=== PATIENT | female | born 1985 | race Caucasian/White ===

== ENCOUNTER → 2016-12-10 | Outpatient (CLI) | payer BC ==
[~2016-12-10] MED LIST: CITA10TA12 PO; FERR325C PO; HYDR-700 PO; NITR-65 PO; OXYC-12 PO; ZOLP10TA PO
== END ==
LOC: CARD 10:01
PROVIDERS: ATTEND Nurse Practitioner Adult Health
DX: R00.2 Palpitations (principal)
CPT/HCPCS: 93225; 93226

== ENCOUNTER → 2017-10-14 | Outpatient (CLI) | payer BC ==
[~2017-10-14] MED LIST changes: +BARIUM SUSPENSION 105% (LIQUID POLIBAR PLUS) 240 ML/DOSE PO ONE; +BARIUM SUSPENSION 60% (LIQUID EZ PAQUE) 240 ML DOSE PO ONE
--- NOTE | 2017-10-14 16:15 | Diagnostic Imaging Report ---
EXAMINATION: Upper GI study, double contrast. Woodworking Machine Setter image of the abdomen was performed. After the oral administration of gas forming granules, the patient drank thick and thin barium with visualization under fluoroscopy, with spot images taken over the esophagus, stomach and duodenum and followed by overhead images in the chest and abdomen. INDICATION: Gastroesophageal reflux. FLUOROSCOPY TIME: 59 seconds. FINDINGS: Woodworking Machine Setter images of the abdomen demonstrate small amount of fecal material. The esophagus demonstrates normal caliber with no strictures. The mucosal pattern demonstrates no filling defects, diverticulum or ulceration. There is normal relaxation of the distal sphincter. There is slight delay in emptying of the esophagus with residual barium seen in the prone position suggestive of mild motility dysfunction. No tertiary or other abnormal contractions seen. There is no hiatal hernia. The stomach demonstrates normal distensibility with normal appearance of the mucosal folds. There are no ulcers or evidence of mass. The duodenal bulb and sweep appear normal. IMPRESSION: Slight incomplete emptying of the esophagus on prone position only compatible with the minimal motility dysfunction. Otherwise unremarkable double-contrast upper GI study. Dictated by: Dictated on workstation # [id number]
== END ==
LOC: RAD 08:44
PROVIDERS: ATTEND Surgery
DX: K21.9 Gastro-esophageal reflux disease without esophagitis (principal)
CPT/HCPCS: 74241

== ENCOUNTER 2017-11-11 11:49 | Outpatient (CLI) | payer BC ==
[~2017-11-11] VITALS: Ht 160 cm; Wt 135.8 kg
[~2017-11-11 11:49] MED LIST changes: -BARIUM SUSPENSION 105% (LIQUID POLIBAR PLUS) 240 ML/DOSE PO ONE; -BARIUM SUSPENSION 60% (LIQUID EZ PAQUE) 240 ML DOSE PO ONE
[2017-11-11] MEDS ORDERED: VORT10TA PO (12:07)
[2017-11-11] MEDS ORDERED: ARIP5TAB12 PO (12:07)
[2017-11-11] MEDS ORDERED: CALC-857 PO (12:08)
[2017-11-11] MEDS ORDERED: MULT-192 PO (12:08)
[2017-11-11 12:14] VITALS: BP 134/81
[2017-11-11 12:31] LABS: BASOPHILS % (AUTO) 0 % (0-10); EOSINOPHILS % (AUTO) 1 % (0-10); LYMPHOCYTES # (AUTO) 1.9 X 10^3 (1.0-4.0); LYMPHOCYTES % (AUTO) 24 % (12-44); MEAN CORPUSCULAR HEMOGLOBIN 31 PG (25-34); MEAN CORPUSCULAR HGB CONC 36 G/DL (32-36); MEAN CORPUSCULAR VOLUME 88 FL (80-99); MEAN PLATELET VOLUME 9.8 FL (7.4-10.4); MONOCYTES # (AUTO) 0.6 X 10^3 (0.0-1.0); MONOCYTES % (AUTO) 7 % (0-12); NEUTROPHILS # (AUTO) 5.4 X 10^3 (1.8-7.8); NEUTROPHILS % (AUTO) 68 % (42-75); PLATELET COUNT 330 10^3/uL (130-400); RED BLOOD COUNT 4.74 10^6/uL (4.35-5.85); RED CELL DISTRIBUTION WIDTH 12.3 % (10.0-14.5)
== END 2017-11-11 12:25 | disposition home or self-care (01) ==
LOC: PREOP 11:49
PROVIDERS: ATTEND Surgery
DX: Z01.812 Encounter for preprocedural laboratory examination (principal); Z11.2 Encounter for screening for other bacterial diseases; E66.01 Morbid (severe) obesity due to excess calories
CPT/HCPCS: 36415; 85025; 87081

== ENCOUNTER 2017-11-18 10:23 | Inpatient (IN) | payer BC ==
[~2017-11-18] VITALS: Ht 160 cm; Wt 135.8 kg
[~2017-11-18 10:23] MED LIST changes: +ARIP5TAB12 PO; +CALC-857 PO; +MULT-192 PO; +VORT10TA PO
[2017-11-18 10:40] VITALS: BP 121/71
[2017-11-18] MEDS ORDERED: FAMOTIDINE 20MG/2ML IV (PEPCID) IV ONE (10:45)
[2017-11-18] MEDS ORDERED: SCOPOLAMINE 1.5 MG (TRANSDERM-SCOP) PATCH TOP ONE (10:45)
[2017-11-18] MEDS ORDERED: ceFAZolin INJECTION 1,000 MG in NS (IVPB) 50 ML IV ONE (10:45)
[2017-11-18] MEDS ORDERED: ONDANSETRON 4 MG/2 ML (SDV) Z0FRAN IV ONE (10:45)
--- OUTSIDE RECORDS SUMMARY | 2017-11-18 11:00 | XMS REPORT ---
Author Author CLAYTON SRINIVASAN [facility] eClinicalWorks Address Unknown Phone Unavailable Care Team Providers Care Appliance Fixer Name Role Phone CLAYTON SRINIVASNA CP Unavailable Allergies, Adverse Reactions, Alerts Substance Reaction Event Type Codeine Sulfate itching Drug Allergy Problems Problem Type Condition Code Onset Dates Condition Status Problem Anxiety F41.9 Active Problem Major depressive disorder with single episode, remission status unspecified F32.9 Active Problem Severe episode of recurrent major depressive disorder, with psychotic features F33.3 Active Assessment Severe episode of recurrent major depressive disorder, with psychotic features F33.3 Active Problem Primary insomnia F51.01 Active Assessment Anxiety F41.9 Active Medications No Known Medications Procedures Procedure Coding System Code Date Psych diagnostic evaluation, new patient CPT-4 67500 Aug 27, 2016 Results No Known Results Summary Purpose eClinicalWorks Submission
--- OUTSIDE RECORDS SUMMARY | 2017-11-18 11:00 | XMS REPORT ---
Author Author MAURISIO LIU Organization [facility] Address [address] [place] [address] Care Team Providers Care Registered Midwife Name Role Phone MARTINEZ LIUNETTE Unavailable PROBLEMS Type Condition ICD9-CM Code [id number] Code Onset Dates Condition Status SNOMED Code Problem Anxiety F41.9 Active 54336742 Problem Major depressive disorder with single episode, remission status unspecified F32.9 Active 80019927 Assessment Anxiety F41.9 Jul, Active 09030736 Problem Primary insomnia F51.01 Active 2295629 Problem Moderate episode of recurrent major depressive disorder F33.1 Active 666710823 ALLERGIES Substance Reaction Event Type Date Status Codeine Sulfate itching Drug Allergy Jul, Active SOCIAL HISTORY No smoking Hx information available PLAN OF CARE VITAL SIGNS Height 63 in 2016-08-24 Weight 294 lbs 2016-08-24 Heart Rate 78 bpm 2016-08-24 Respiratory Rate 20 2016-08-24 BMI 52.07 kg/m2 2016-08-24 Blood pressure systolic 130 mmHg 2016-08-24 Blood pressure diastolic 72 mmHg 2016-08-24 MEDICATIONS Medication Instructions Dosage Frequency Start Date End Date Duration Status Celexa 20 mg Orally Once a day 1 tablet 24h Jul, 30 day(s) Active Remeron 30 MG Orally one hour before bed 1 tablet before bedtime in the evening Jul, 14 days Active RESULTS No Results PROCEDURES Procedure Date Ordered Related Diagnosis Body Site Office Visit, Est Pt., Level 3 Aug 24, 2016 IMMUNIZATIONS No Known Immunizations
--- OUTSIDE RECORDS SUMMARY | 2017-11-18 11:00 | XMS REPORT ---
Author [facility] Address [address] [place] [address] Care Team Providers Care Television Production Assistant Name Role Phone REDDY MAYER Unavailable PROBLEMS Type Condition ICD9-CM Code GBL37-[id number] Code Onset Dates Condition Status SNOMED Code Problem Moderate episode of recurrent major depressive disorder F33.1 Active 847630825 Problem Primary insomnia F51.01 Active 9170220 Problem Major depressive disorder with single episode, remission status unspecified F32.9 Active 36805284 Problem Psychophysiological insomnia F51.04 Active 281328428 Problem Generalized anxiety disorder F41.1 Active 55949689 Problem Panic attack F41.0 Active 603322594 Problem Anxiety F41.9 Active 27213971 Problem Severe episode of recurrent major depressive disorder, without psychotic features F33.2 Active 60379047 Problem Palpitations R00.2 Active 63054973 ALLERGIES Unknown Allergies SOCIAL HISTORY No smoking Hx information available PLAN OF CARE VITAL SIGNS MEDICATIONS Unknown Medications RESULTS No Results PROCEDURES No Known procedures IMMUNIZATIONS No Known Immunizations
--- OUTSIDE RECORDS SUMMARY | 2017-11-18 11:00 | XMS REPORT ---
Author Author ALEXA MAURISIO Organization [facility] Address [address] [place] [address] Care Team Providers Care Plug Sorter Name Role Phone MARTINEZ LIUNETTE Unavailable PROBLEMS Type Condition ICD9-CM Code IEA34-OM Code Onset Dates Condition Status SNOMED Code Problem Moderate episode of recurrent major depressive disorder F33.1 Active 402282877 Problem Primary insomnia F51.01 Active 7367266 Problem Major depressive disorder with single episode, remission status unspecified F32.9 Active 13660402 Problem Psychophysiological insomnia F51.04 Active 462107556 Problem Generalized anxiety disorder F41.1 Active 62190369 Problem Panic attack F41.0 Active 420762949 Problem Anxiety F41.9 Active 84157169 Problem Severe episode of recurrent major depressive disorder, without psychotic features F33.2 Active 89207483 Problem Palpitations R00.2 Active 29888608 ALLERGIES Substance Reaction Event Type Date Status Codeine Sulfate itching Drug Allergy Nov, Active SOCIAL HISTORY No smoking Hx information available PLAN OF CARE Activity Details Follow Up 4 Weeks Reason:anxiety VITAL SIGNS Height 63 in 2016-12-10 Weight 287.2 lbs 2016-12-10 Temperature 98.7 degrees Fahrenheit 2016-12-10 Heart Rate 102 bpm 2016-12-10 Respiratory Rate 22 2016-12-10 BMI 50.87 kg/m2 2016-12-10 Blood pressure systolic 118 mmHg 2016-12-10 Blood pressure diastolic 90 mmHg 2016-12-10 MEDICATIONS Medication Instructions Dosage Frequency Start Date End Date Duration Status Celexa 40 MG Orally Once a day 1 tablet 24h Jul, Active Clonidine HCl 0.1 MG Orally twice a day prn 1 tablet Nov, 30 day(s) Active Aripiprazole 10 mg Orally Once a day 1 tablet 24h Oct, Active Lunesta 2 MG Orally Once a day 1 tablet immediately before bedtime 24h Oct, Active RESULTS No Results PROCEDURES Procedure Date Ordered Related Diagnosis Body Site Office Visit, Est Pt., Level 3 Dec 10, 2016 IMMUNIZATIONS No Known Immunizations
--- OUTSIDE RECORDS SUMMARY | 2017-11-18 11:00 | XMS REPORT ---
Author Author CLAYTON SRINIVASAN [facility] Address [address] [place] [address] Care Team Providers Care Bricklayer Paving Brick Name Role Phone CLAYTON SRINIVASAN Unavailable PROBLEMS Type Condition ICD9-CM Code TFI90-JF Code Onset Dates Condition Status SNOMED Code Problem Moderate episode of recurrent major depressive disorder F33.1 Active 300846491 Problem Major depressive disorder with single episode, remission status unspecified F32.9 Active 62007038 Problem Primary insomnia F51.01 Active 2158829 Problem Psychophysiological insomnia F51.04 Active 719296501 Problem Generalized anxiety disorder F41.1 Active 21148772 Problem Palpitations R00.2 Active 53741387 Problem Anxiety F41.9 Active 84057951 Problem Severe episode of recurrent major depressive disorder, without psychotic features F33.2 Active 29990552 Problem Panic attack F41.0 Active 988335420 ALLERGIES Unknown Allergies SOCIAL HISTORY No smoking Hx information available PLAN OF CARE Activity Details Follow Up 1 Week Reason:Anxiety, depression VITAL SIGNS MEDICATIONS Unknown Medications RESULTS No Results PROCEDURES Procedure Date Ordered Related Diagnosis Body Site Psychotherapy, patient &/family, 30 minutes, established patient Nov 23, 2016 IMMUNIZATIONS No Known Immunizations
--- OUTSIDE RECORDS SUMMARY | 2017-11-18 11:00 | XMS REPORT ---
Author Author REDDY MAYER [facility] Address [address] [place] [address] Care Team Providers Care Genetic Physician Name Role Phone REDDY MAYER Unavailable PROBLEMS Type Condition ICD9-CM Code [id number] Code Onset Dates Condition Status SNOMED Code Problem Moderate episode of recurrent major depressive disorder F33.1 Active 411965947 Problem Primary insomnia F51.01 Active 1572291 Problem Major depressive disorder with single episode, remission status unspecified F32.9 Active 72101709 Problem Psychophysiological insomnia F51.04 Active 808762281 Problem Generalized anxiety disorder F41.1 Active 57749759 Problem Panic attack F41.0 Active 408101525 Problem Anxiety F41.9 Active 44297339 Problem Severe episode of recurrent major depressive disorder, without psychotic features F33.2 Active 77496392 Problem Palpitations R00.2 Active 63896491 ALLERGIES Unknown Allergies SOCIAL HISTORY No smoking Hx information available PLAN OF CARE VITAL SIGNS MEDICATIONS Medication Instructions Dosage Frequency Start Date End Date Duration Status Belsomra 15 MG Orally Once a day 1 tablet at bedtime as needed 24h Nov, 10 days Active RESULTS No Results PROCEDURES No Known procedures IMMUNIZATIONS No Known Immunizations
--- OUTSIDE RECORDS SUMMARY | 2017-11-18 11:00 | XMS REPORT ---
Author Author MAURISIO LIU [facility] eClinicalWorks Address Unknown Phone Unavailable Care Team Providers Care Biology Specialist Name Role Phone MAURISIO LIU CP Unavailable Allergies, Adverse Reactions, Alerts Substance Reaction Event Type Codeine Sulfate itching Drug Allergy Problems Problem Type Condition Code Onset Dates Condition Status Assessment Primary insomnia F51.01 Active Assessment Panic attack F41.0 Active Problem Palpitations R00.2 Active Problem Severe episode of recurrent major depressive disorder, with psychotic features F33.3 Active Problem Panic attack F41.0 Active Problem Primary insomnia F51.01 Active Assessment Palpitations R00.2 Active Problem Anxiety F41.9 Active Problem Major depressive disorder with single episode, remission status unspecified F32.9 Active Medications Medication Code System Code Instructions Start Date End Date Status Dosage Remeron [facility] [address]-18 45 MG Orally one hour before bed Aug 24, 2016 1 tablet before bedtime in the evening Ambien [facility] [address]-56 10 mg Orally Once a day Oct 26, 2016 1 tablet at bedtime as needed Celexa [facility] [address]-55 20 mg Orally Once a day Aug 24, 2016 1 tablet HydrOXYzine HCl [facility] [address]-32 25 MG Orally every 8 hrs Oct 26, 2016 1 tablet as needed Procedures Procedure Coding System Code Date ASSAY OF FREE THYROXINE CPT-4 69692 Oct 26, 2016 ASSAY OF MAGNESIUM CPT-4 77795 Oct 26, 2016 ASSAY THYROID STIM HORMONE CPT-4 74720 Oct 26, 2016 VENIPUNCT, ROUTINE* CPT-4 18220 Oct 26, 2016 Office Visit, Est Pt., Level 4 CPT-4 05865 Oct 26, 2016 Vital Signs Date/Time: Oct 26, 2016 Cardiac Monitoring Heart Rate 92 bpm Weight 286.9 lbs Height 63 in BMI 50.82 Index Blood Pressure Diastolic 81 mmHg Blood Pressure Systolic 149 mmHg Results Name Result Date Reference Range Unit Abnormality Flag ROUTINE VENIPUNCTURE TSH W/ FREE T4 ----TSH 1.530 20161026 0.450-4.500 uIU/mL ----T4,Free(Direct) 1.30 20161026 0.82-1.77 ng/dL MAGNESIUM, SERUM ----Magnesium, Serum 1.8 20161026 1.6-2.3 mg/dL Summary Purpose eClinicalWorks Submission
--- OUTSIDE RECORDS SUMMARY | 2017-11-18 11:01 | XMS REPORT ---
Author Author CLAYTON SRINIVASAN [facility] Address [address] [place] [address] Care Team Providers Care Glass Sander Name Role Phone CLAYTON SRINIVASAN Unavailable PROBLEMS Type Condition ICD9-CM Code HUI15-HO Code Onset Dates Condition Status SNOMED Code Problem Moderate episode of recurrent major depressive disorder F33.1 Active 188413211 Problem Major depressive disorder with single episode, remission status unspecified F32.9 Active 61222741 Problem Primary insomnia F51.01 Active 4943895 Problem Psychophysiological insomnia F51.04 Active 659305330 Problem Generalized anxiety disorder F41.1 Active 78418797 Problem Palpitations R00.2 Active 12526070 Problem Anxiety F41.9 Active 11100912 Problem Severe episode of recurrent major depressive disorder, without psychotic features F33.2 Active 57367751 Problem Panic attack F41.0 Active 124107677 ALLERGIES Substance Reaction Event Type Date Status Codeine Sulfate itching Drug Allergy Oct, Active SOCIAL HISTORY No smoking Hx information available PLAN OF CARE Activity Details Follow Up 1 Week Reason:Anxiety VITAL SIGNS MEDICATIONS Unknown Medications RESULTS No Results PROCEDURES Procedure Date Ordered Related Diagnosis Body Site Psychotherapy, patient &/family, 30 minutes, established patient Nov 19, 2016 IMMUNIZATIONS No Known Immunizations
--- OUTSIDE RECORDS SUMMARY | 2017-11-18 11:01 | XMS REPORT ---
Author Author CLAYTON SRINIVASAN [facility] Address [address] [place] [address] Care Team Providers Care Elevator Service Mechanic Name Role Phone CLAYTON SRINIVASAN Unavailable PROBLEMS Type Condition ICD9-CM Code [id number] Code Onset Dates Condition Status SNOMED Code Problem Moderate episode of recurrent major depressive disorder F33.1 Active 418104941 Problem Major depressive disorder with single episode, remission status unspecified F32.9 Active 12901974 Problem Primary insomnia F51.01 Active 8565194 Problem Psychophysiological insomnia F51.04 Active 773805154 Problem Generalized anxiety disorder F41.1 Active 35243474 Problem Palpitations R00.2 Active 74591591 Problem Anxiety F41.9 Active 42722937 Problem Severe episode of recurrent major depressive disorder, without psychotic features F33.2 Active 14560336 Problem Panic attack F41.0 Active 891072652 ALLERGIES Substance Reaction Event Type Date Status Codeine Sulfate itching Drug Allergy Oct, Active SOCIAL HISTORY No smoking Hx information available PLAN OF CARE Activity Details Follow Up Tomorrow Reason:Anxiety, Depression, Panic attack VITAL SIGNS MEDICATIONS Unknown Medications RESULTS No Results PROCEDURES Procedure Date Ordered Related Diagnosis Body Site Psych diagnostic evaluation, established patient Nov 18, 2016 IMMUNIZATIONS No Known Immunizations
--- OUTSIDE RECORDS SUMMARY | 2017-11-18 11:01 | XMS REPORT ---
Author Author CLAYTON SRINIVASAN [facility] Address [address] [place] [address] Care Team Providers Care Php Mysql Web Developer Name Role Phone CLAYTON SRINIVASAN Unavailable PROBLEMS Type Condition ICD9-CM Code ZJD46-MX Code Onset Dates Condition Status SNOMED Code Problem Major depressive disorder with single episode, remission status unspecified F32.9 Active 10548540 Problem Anxiety F41.9 Active 47745837 Problem Primary insomnia F51.01 Active 7213582 Problem Moderate episode of recurrent major depressive disorder F33.1 Active 444626298 Problem Migraine without aura and with status migrainosus, not intractable G43.001 Active 108829034 Problem Psychophysiological insomnia F51.04 Active 875028695 Problem Palpitations R00.2 Active 63984942 Problem Panic attack F41.0 Active 087642191 Problem Generalized anxiety disorder F41.1 Active 18879684 Problem Severe episode of recurrent major depressive disorder, without psychotic features F33.2 Active 18526267 ALLERGIES No Information SOCIAL HISTORY Never Assessed PLAN OF CARE Activity Details Follow Up 3 Weeks Reason:Depression VITAL SIGNS MEDICATIONS Unknown Medications RESULTS No Results PROCEDURES Procedure Date Ordered Result Body Site Psychotherapy, patient &/family, 30 minutes, established patient April 06, 2017 IMMUNIZATIONS No Known Immunizations MEDICAL (GENERAL) HISTORY Type Description Date Medical History anxiety Medical History panic disorder Medical History Depression Surgical History section 06/2012 Surgical History appendectomy 06/2009 Surgical History carpal tunnel release--both
--- OUTSIDE RECORDS SUMMARY | 2017-11-18 11:01 | XMS REPORT ---
Author Author [facility] JAQUEZ [facility] Address [address] [place] [address] Care Team Providers Care Education Counselor Name Role Phone LOUISE JAQUEZ Unavailable PROBLEMS Type Condition ICD9-CM Code AVG65-FR Code Onset Dates Condition Status SNOMED Code Problem Major depressive disorder with single episode, remission status unspecified F32.9 Active 01758028 Problem Anxiety F41.9 Active 04962158 Problem Primary insomnia F51.01 Active 7203835 Problem Moderate episode of recurrent major depressive disorder F33.1 Active 051971026 Problem Migraine without aura and with status migrainosus, not intractable G43.001 Active 145028737 Problem Psychophysiological insomnia F51.04 Active 815601496 Problem Palpitations R00.2 Active 62376099 Problem Panic attack F41.0 Active 763207007 Problem Generalized anxiety disorder F41.1 Active 29999975 Problem Severe episode of recurrent major depressive disorder, without psychotic features F33.2 Active 29920404 ALLERGIES Substance Reaction Event Type Date Status Codeine Sulfate itching Drug Allergy Dec, Active SOCIAL HISTORY Never Assessed PLAN OF CARE Activity Details Follow Up 1 Year, sooner prn Reason: VITAL SIGNS Height 63 in 2017-01-12 Weight 283 lbs 2017-01-12 Temperature 98.5 degrees Fahrenheit 2017-01-12 Heart Rate 80 bpm 2017-01-12 Respiratory Rate 20 2017-01-12 BMI 50.13 kg/m2 2017-01-12 Blood pressure systolic 120 mmHg 2017-01-12 Blood pressure diastolic 80 mmHg 2017-01-12 MEDICATIONS Medication Instructions Dosage Frequency Start Date End Date Duration Status Belsomra 15 MG Orally Once a day 1 tablet at bedtime as needed 24h Nov, 10 days Active Ambien CR 12.5 MG Orally Once a day 1 tablet at bedtime as needed 24h 13 Dec, 2016 Active Aripiprazole 10 mg Orally Once a day 1 tablet 24h Active Celexa 40 MG Orally Once a day 1 tablet 24h Active RESULTS Name Result Date Reference Range TRICHOMONAS (IN HOUSE) 2017-01-12 TRICHOMONAS negative Control + Lot # [id number] Exp date 12/2017 BACTERIAL VAGINOSIS (IN HOUSE) 2017-01-12 RESULTS negative Control + Lot # [id number] Exp date 07/2017 CULTURE, GENITAL 2017-01-12 Genital Culture, Routine Final report Result 1 PAP TEST W/ HPV REGARDLESS 2017-01-12 DIAGNOSIS: Specimen adequacy: Clinician provided ICD10: Performed by: QC reviewed by: . . Note: HPV, high-risk Negative Negative PDF Report 2017-01-12 PDF Report1 LCLS GC/CHLAM PROBE (STATE) 2017-01-12 CHLAMYDIA GC PROCEDURES Procedure Date Ordered Result Body Site SPECIMEN HANDLING Jan 12, 2017 TRICHOMONAS ASSAY W/OPTIC Jan 12, 2017 VENIPUNCT, ROUTINE* Jan 12, 2017 CULTURE, BACTERIA, OTHER Jan 12, 2017 VILLATORO VAG, DNA, DIR PROBE Jan 12, 2017 No Charge Jan 12, 2017 IMMUNIZATIONS No Known Immunizations MEDICAL (GENERAL) HISTORY Type Description Date Medical History anxiety Medical History panic disorder Medical History Depression Surgical History section 06/2012 Surgical History appendectomy 06/2009 Surgical History carpal tunnel release--both
--- OUTSIDE RECORDS SUMMARY | 2017-11-18 11:01 | XMS REPORT ---
Author Author MAURISIO LIU Organization [facility] Address [address] [place] [address] Care Team Providers Care Supervisor Line Department Name Role Phone MAURISIO LIU Unavailable PROBLEMS Type Condition ICD9-CM Code ILC01-OK Code Onset Dates Condition Status SNOMED Code Problem Moderate episode of recurrent major depressive disorder F33.1 Active 988639930 Problem Major depressive disorder with single episode, remission status unspecified F32.9 Active 37529506 Problem Primary insomnia F51.01 Active 4569117 Problem Psychophysiological insomnia F51.04 Active 828566275 Problem Generalized anxiety disorder F41.1 Active 37189165 Problem Palpitations R00.2 Active 95027649 Problem Anxiety F41.9 Active 33046982 Problem Severe episode of recurrent major depressive disorder, without psychotic features F33.2 Active 17318572 Problem Panic attack F41.0 Active 740560447 ALLERGIES Unknown Allergies SOCIAL HISTORY No smoking Hx information available PLAN OF CARE VITAL SIGNS MEDICATIONS Unknown Medications RESULTS No Results PROCEDURES No Known procedures IMMUNIZATIONS No Known Immunizations
--- OUTSIDE RECORDS SUMMARY | 2017-11-18 11:01 | XMS REPORT ---
Author Author CLAYTON SRINIVASAN [facility] Address [address] [place] [address] Care Team Providers Care Char Filter Tank Tender Head Name Role Phone CLAYTON SRINIVASAN Unavailable PROBLEMS Type Condition ICD9-CM Code ADJ98-MA Code Onset Dates Condition Status SNOMED Code Problem Major depressive disorder with single episode, remission status unspecified F32.9 Active 35196845 Problem Anxiety F41.9 Active 17743677 Problem Primary insomnia F51.01 Active 7098245 Problem Moderate episode of recurrent major depressive disorder F33.1 Active 700842381 Problem Migraine without aura and with status migrainosus, not intractable G43.001 Active 451371825 Problem Psychophysiological insomnia F51.04 Active 635623126 Problem Palpitations R00.2 Active 85508196 Problem Panic attack F41.0 Active 998891454 Problem Generalized anxiety disorder F41.1 Active 30090833 Problem Severe episode of recurrent major depressive disorder, without psychotic features F33.2 Active 73253544 ALLERGIES No Information SOCIAL HISTORY Never Assessed PLAN OF CARE Activity Details Follow Up 2 Weeks Reason:Depression VITAL SIGNS MEDICATIONS Unknown Medications RESULTS No Results PROCEDURES Procedure Date Ordered Result Body Site Psychotherapy, patient &/family, 30 minutes, established patient March 09, 2017 IMMUNIZATIONS No Known Immunizations MEDICAL (GENERAL) HISTORY Type Description Date Medical History anxiety Medical History panic disorder Medical History Depression Surgical History section 06/2012 Surgical History appendectomy 06/2009 Surgical History carpal tunnel release--both
--- OUTSIDE RECORDS SUMMARY | 2017-11-18 11:01 | XMS REPORT ---
Author Author CLAYTON SRINIVASAN [facility] Address [address] [place] [address] Care Team Providers Care Toy Assembler Wood Name Role Phone CLAYTON SRINIVASAN Unavailable PROBLEMS Type Condition ICD9-CM Code [id number] Code Onset Dates Condition Status SNOMED Code Problem Major depressive disorder with single episode, remission status unspecified F32.9 Active 16452981 Problem Anxiety F41.9 Active 94602983 Problem Primary insomnia F51.01 Active 7765541 Problem Moderate episode of recurrent major depressive disorder F33.1 Active 322257406 Problem Migraine without aura and with status migrainosus, not intractable G43.001 Active 646967582 Problem Psychophysiological insomnia F51.04 Active 958378134 Problem Palpitations R00.2 Active 62006233 Problem Panic attack F41.0 Active 011964989 Problem Generalized anxiety disorder F41.1 Active 75506714 Problem Severe episode of recurrent major depressive disorder, without psychotic features F33.2 Active 09744304 ALLERGIES Substance Reaction Event Type Date Status Codeine Sulfate itching Drug Allergy Feb, Active SOCIAL HISTORY Never Assessed PLAN OF CARE Activity Details Follow Up Next available Reason:Depression, anxiety VITAL SIGNS MEDICATIONS Unknown Medications RESULTS No Results PROCEDURES Procedure Date Ordered Result Body Site Psychotherapy, patient &/family, 30 minutes, established patient March 25, 2017 IMMUNIZATIONS No Known Immunizations MEDICAL (GENERAL) HISTORY Type Description Date Medical History anxiety Medical History panic disorder Medical History Depression Surgical History section 06/2012 Surgical History appendectomy 06/2009 Surgical History carpal tunnel release--both
--- OUTSIDE RECORDS SUMMARY | 2017-11-18 11:01 | XMS REPORT ---
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 Active 559765516 Problem Major depressive disorder with single episode, remission status unspecified F32.9 Active 86865973 Problem Primary insomnia F51.01 Active 5345090 Problem Psychophysiological insomnia F51.04 Active 441915388 Problem Generalized anxiety disorder F41.1 Active 50704851 Problem Palpitations R00.2 Active 81916011 Problem Anxiety F41.9 Active 87016856 Problem Severe episode of recurrent major depressive disorder, without psychotic features F33.2 Active 86870735 Problem Panic attack F41.0 Active 998255580 ALLERGIES Substance Reaction Event Type Date Status Codeine Sulfate itching Drug Allergy Oct, Active SOCIAL HISTORY No smoking Hx information available PLAN OF CARE Activity Details Follow Up 2 Weeks Reason:anxiety VITAL SIGNS Height 63 in 2016-11-18 Weight 278.6 lbs 2016-11-18 Temperature 98.4 degrees Fahrenheit 2016-11-18 Heart Rate 128 bpm 2016-11-18 Respiratory Rate 20 2016-11-18 BMI 49.35 kg/m2 2016-11-18 Blood pressure systolic 132 mmHg 2016-11-18 Blood pressure diastolic 70 mmHg 2016-11-18 MEDICATIONS Medication Instructions Dosage Frequency Start Date End Date Duration Status Celexa 20 mg Orally Once a day 1 tablet 24h Jul, 30 day(s) Active Ambien 10 mg Orally Once a day 1 tablet at bedtime as needed 24h Sep, Active Lorazepam 0.5 MG Orally 3 times a day 1 tablet as needed 8h Oct, Active PredniSONE 20 mg Orally Once a day 2 tablets 24h Oct, Oct, 05 days Active Zofran 8 MG Orally 3 times a day 1 tablet 8h 18 Oct, 2016 Active RESULTS No Results PROCEDURES Procedure Date Ordered Related Diagnosis Body Site Office Visit, Est Pt., Level 4 Nov 18, 2016 IMMUNIZATIONS No Known Immunizations
--- OUTSIDE RECORDS SUMMARY | 2017-11-18 11:01 | XMS REPORT ---
Author Author CLAYTON SRINIVASAN [facility] Address [address] [place] [address] Care Team Providers Care Certified Orthotist Name Role Phone CLAYTON SRINIVASAN Unavailable PROBLEMS Type Condition ICD9-CM Code [id number] Code Onset Dates Condition Status SNOMED Code Problem Moderate episode of recurrent major depressive disorder F33.1 Active 394804011 Problem Primary insomnia F51.01 Active 5920837 Problem Major depressive disorder with single episode, remission status unspecified F32.9 Active 76574566 Problem Psychophysiological insomnia F51.04 Active 883493423 Problem Generalized anxiety disorder F41.1 Active 59156730 Problem Panic attack F41.0 Active 244301582 Problem Anxiety F41.9 Active 50519756 Problem Severe episode of recurrent major depressive disorder, without psychotic features F33.2 Active 61654071 Problem Palpitations R00.2 Active 82537805 ALLERGIES Substance Reaction Event Type Date Status Codeine Sulfate itching Drug Allergy Nov, Active SOCIAL HISTORY No smoking Hx information available PLAN OF CARE Activity Details Follow Up 2 Weeks Reason:Anxiety, depression, weight loss VITAL SIGNS MEDICATIONS Unknown Medications RESULTS No Results PROCEDURES Procedure Date Ordered Related Diagnosis Body Site Psychotherapy, patient &/family, 30 minutes, established patient Dec 16, 2016 IMMUNIZATIONS No Known Immunizations
--- OUTSIDE RECORDS SUMMARY | 2017-11-18 11:01 | XMS REPORT ---
Author Author MAURISIO LIU Organization [facility] Address [address] [place] [address] Care Team Providers Care Internal Control Specialist Name Role Phone MAURISIO LIU Unavailable PROBLEMS Type Condition ICD9-CM Code [id number] Code Onset Dates Condition Status SNOMED Code Problem Moderate episode of recurrent major depressive disorder F33.1 Active 776118796 Problem Primary insomnia F51.01 Active 3983478 Problem Major depressive disorder with single episode, remission status unspecified F32.9 Active 17097231 Problem Psychophysiological insomnia F51.04 Active 541085303 Problem Generalized anxiety disorder F41.1 Active 34019459 Problem Panic attack F41.0 Active 343295576 Problem Anxiety F41.9 Active 37157477 Problem Severe episode of recurrent major depressive disorder, without psychotic features F33.2 Active 44495271 Problem Palpitations R00.2 Active 56374613 ALLERGIES Unknown Allergies SOCIAL HISTORY No smoking Hx information available PLAN OF CARE VITAL SIGNS MEDICATIONS Unknown Medications RESULTS No Results PROCEDURES No Known procedures IMMUNIZATIONS No Known Immunizations
--- OUTSIDE RECORDS SUMMARY | 2017-11-18 11:01 | XMS REPORT ---
Author Author JAYESH BUI [facility] Address [address] [place] [address] Care Team Providers Care Postbed Stitcher Name Role Phone HAO JAYESH Unavailable PROBLEMS Type Condition ICD9-CM Code [id number] Code Onset Dates Condition Status SNOMED Code Problem Major depressive disorder with single episode, remission status unspecified F32.9 Active 65779631 Problem Anxiety F41.9 Active 95920211 Problem Primary insomnia F51.01 Active 7692114 Problem Moderate episode of recurrent major depressive disorder F33.1 Active 669239841 Problem Migraine without aura and with status migrainosus, not intractable G43.001 Active 220800493 Problem Psychophysiological insomnia F51.04 Active 452395285 Problem Palpitations R00.2 Active 72338662 Problem Panic attack F41.0 Active 374486856 Problem Generalized anxiety disorder F41.1 Active 67485843 Problem Severe episode of recurrent major depressive disorder, without psychotic features F33.2 Active 90706832 ALLERGIES Substance Reaction Event Type Date Status Codeine Sulfate itching Drug Allergy Oct, Active SOCIAL HISTORY Never Assessed PLAN OF CARE VITAL SIGNS Height 63 in 2016-11-15 Weight 282.8 lbs 2016-11-15 Temperature 97.9 degrees Fahrenheit 2016-11-15 Heart Rate 84 bpm 2016-11-15 Respiratory Rate 20 2016-11-15 BMI 50.09 kg/m2 2016-11-15 Blood pressure systolic 124 mmHg 2016-11-15 Blood pressure diastolic 82 mmHg 2016-11-15 MEDICATIONS Medication Instructions Dosage Frequency Start Date End Date Duration Status Ambien 10 mg Orally Once a day 1 tablet at bedtime as needed 24h Sep, Active Celexa 20 mg Orally Once a day 1 tablet 24h Jul, 30 day(s) Active PredniSONE 20 mg Orally Once a day 2 tablets 24h Oct, Oct, 05 days Active Zofran 8 MG Orally 3 times a day 1 tablet 8h Oct, Active RESULTS No Results PROCEDURES No Known procedures IMMUNIZATIONS No Known Immunizations MEDICAL (GENERAL) HISTORY Type Description Date Medical History anxiety Medical History panic disorder Medical History Depression Surgical History section 06/2012 Surgical History appendectomy 06/2009 Surgical History carpal tunnel release--both
--- OUTSIDE RECORDS SUMMARY | 2017-11-18 11:01 | XMS REPORT ---
Author Author REDDY MAYER Organization [facility] Address [address] [place] [address] Care Team Providers Care Buggy Man Name Role Phone MORENO, REDDY Unavailable PROBLEMS Type Condition ICD9-CM Code [id number] Code Onset Dates Condition Status SNOMED Code Problem Moderate episode of recurrent major depressive disorder F33.1 Active 471172993 Problem Major depressive disorder with single episode, remission status unspecified F32.9 Active 27487470 Problem Primary insomnia F51.01 Active 9537066 Problem Psychophysiological insomnia F51.04 Active 196117982 Problem Generalized anxiety disorder F41.1 Active 62677502 Problem Palpitations R00.2 Active 13023287 Problem Anxiety F41.9 Active 12714287 Problem Severe episode of recurrent major depressive disorder, without psychotic features F33.2 Active 06156694 Problem Panic attack F41.0 Active 791842108 ALLERGIES Substance Reaction Event Type Date Status Codeine Sulfate itching Drug Allergy Oct, Active SOCIAL HISTORY No smoking Hx information available PLAN OF CARE Activity Details Follow Up 2 Weeks Reason: VITAL SIGNS Height 63 in 2016-11-24 Weight 282 lbs 2016-11-24 BMI 49.95 kg/m2 2016-11-24 Blood pressure systolic 122 mmHg 2016-11-24 Blood pressure diastolic 72 mmHg 2016-11-24 MEDICATIONS Medication Instructions Dosage Frequency Start Date End Date Duration Status Lunesta 2 MG Orally Once a day 1 tablet immediately before bedtime 24h Oct, Active Celexa 40 MG Orally Once a day 1 tablet 24h Jul, Active Aripiprazole 10 mg Orally Once a day 1 tablet 24h Oct, Active RESULTS No Results PROCEDURES Procedure Date Ordered Related Diagnosis Body Site MH Office Visit, Est Pt., Level 2 Nov 24, 2016 IMMUNIZATIONS No Known Immunizations
--- OUTSIDE RECORDS SUMMARY | 2017-11-18 11:01 | XMS REPORT ---
Author Author CLAYTON SRINIVASAN [facility] Address [address] [place] [address] Care Team Providers Care Veneer Taper Name Role Phone CLAYTON SRINIVASAN Unavailable PROBLEMS Type Condition ICD9-CM Code [id number] Code Onset Dates Condition Status SNOMED Code Assessment Severe episode of recurrent major depressive disorder, without psychotic features F33.2 Jul, Active 63271557 Problem Severe episode of recurrent major depressive disorder, with psychotic features F33.3 Active 28226565 Problem Anxiety F41.9 Active 69447428 Problem Moderate episode of recurrent major depressive disorder F33.1 Active 099459591 Assessment Panic attacks F41.0 Jul, Active 923105724 Problem Major depressive disorder with single episode, remission status unspecified F32.9 Active 57114209 Problem Primary insomnia F51.01 Active 7888774 ALLERGIES Unknown Allergies SOCIAL HISTORY No smoking Hx information available PLAN OF CARE VITAL SIGNS MEDICATIONS Unknown Medications RESULTS No Results PROCEDURES Procedure Date Ordered Related Diagnosis Body Site Psych diagnostic evaluation, new patient Aug 24, 2016 IMMUNIZATIONS No Known Immunizations
--- OUTSIDE RECORDS SUMMARY | 2017-11-18 11:01 | XMS REPORT ---
Author Author REDDY MAYER Organization [facility] Address [address] [place] [address] Care Team Providers Care Diesel Mechanic Farm Name Role Phone BERNARD MAYERMIRI Unavailable PROBLEMS Type Condition ICD9-CM Code [id number] Code Onset Dates Condition Status SNOMED Code Problem Moderate episode of recurrent major depressive disorder F33.1 Active 012519679 Problem Primary insomnia F51.01 Active 5358814 Problem Major depressive disorder with single episode, remission status unspecified F32.9 Active 89139644 Problem Psychophysiological insomnia F51.04 Active 228095642 Problem Generalized anxiety disorder F41.1 Active 41999107 Problem Panic attack F41.0 Active 863312895 Problem Anxiety F41.9 Active 42104819 Problem Severe episode of recurrent major depressive disorder, without psychotic features F33.2 Active 16865064 Problem Palpitations R00.2 Active 16132589 ALLERGIES Substance Reaction Event Type Date Status Codeine Sulfate itching Drug Allergy Nov, Active SOCIAL HISTORY No smoking Hx information available PLAN OF CARE Activity Details Follow Up 4 Weeks Reason: VITAL SIGNS Height 63 in 2016-12-22 Weight 281.3 lbs 2016-12-22 Heart Rate 76 bpm 2016-12-22 Respiratory Rate 20 2016-12-22 BMI 49.82 kg/m2 2016-12-22 Blood pressure systolic 120 mmHg 2016-12-22 Blood pressure diastolic 80 mmHg 2016-12-22 MEDICATIONS Medication Instructions Dosage Frequency Start Date End Date Duration Status Zofran 8 MG Orally 3 times a day 1 tablet 8h Oct, Active Aripiprazole 10 mg Orally Once a day 1 tablet 24h Active Belsomra 10 mg Orally Once a day 1 tablet at bedtime as needed 24h Nov, Active Celexa 40 MG Orally Once a day 1 tablet 24h Active Clonidine HCl 0.1 MG Orally twice a day prn 1 tablet Nov, 30 day(s) Active RESULTS No Results PROCEDURES Procedure Date Ordered Related Diagnosis Body Site MH Office Visit, Est Pt., Level 2 Dec 22, 2016 IMMUNIZATIONS No Known Immunizations
--- OUTSIDE RECORDS SUMMARY | 2017-11-18 11:01 | XMS REPORT ---
Author Author MAURISIO LIU Organization [employer] Address Unknown Phone Unavailable Care Team Providers Care Art Therapist Name Role Phone MAURISIO LIU Unavailable Allergies No Known Allergies Problems Problem Type Condition Code Onset Dates Condition Status Problem Anxiety F41.9 Active Problem Major depressive disorder with single episode, remission status unspecified F32.9 Active Problem Severe episode of recurrent major depressive disorder, with psychotic features F33.3 Active Problem Primary insomnia F51.01 Active Medications Medication Code System Code Instructions Start Date End Date Status Dosage Remeron [facility] [address]-06 45 MG Orally one hour before bed Aug 24, 2016 1 tablet before bedtime in the evening Results No Known Results Summary Purpose [employer] Submission
--- OUTSIDE RECORDS SUMMARY | 2017-11-18 11:02 | XMS REPORT ---
Author Author [facility] MAY[facility] Address [address] [place] [address] Care Team Providers Care Zipper Repairer Name Role Phone REDDY MAYER Unavailable PROBLEMS Type Condition ICD9-CM Code LDY32-[id number] Code Onset Dates Condition Status SNOMED Code Problem Moderate episode of recurrent major depressive disorder F33.1 Active 037618399 Problem Primary insomnia F51.01 Active 9969398 Problem Major depressive disorder with single episode, remission status unspecified F32.9 Active 05966780 Problem Psychophysiological insomnia F51.04 Active 927434034 Problem Generalized anxiety disorder F41.1 Active 62058289 Problem Panic attack F41.0 Active 473673390 Problem Anxiety F41.9 Active 32115052 Problem Severe episode of recurrent major depressive disorder, without psychotic features F33.2 Active 88353017 Problem Palpitations R00.2 Active 05288844 ALLERGIES Unknown Allergies SOCIAL HISTORY No smoking Hx information available PLAN OF CARE VITAL SIGNS MEDICATIONS Unknown Medications RESULTS No Results PROCEDURES No Known procedures IMMUNIZATIONS No Known Immunizations
--- OUTSIDE RECORDS SUMMARY | 2017-11-18 11:02 | XMS REPORT ---
Author Author REDDY MAYER [facility] Address [address] [place] [address] Care Team Providers Care Amusement Park Ride Mechanic Name Role Phone REDDY MAYER Unavailable PROBLEMS Type Condition ICD9-CM Code TBH88-PC Code Onset Dates Condition Status SNOMED Code Problem Moderate episode of recurrent major depressive disorder F33.1 Active 345054505 Problem Primary insomnia F51.01 Active 3794664 Problem Major depressive disorder with single episode, remission status unspecified F32.9 Active 40327359 Problem Psychophysiological insomnia F51.04 Active 662119250 Problem Generalized anxiety disorder F41.1 Active 21982064 Problem Panic attack F41.0 Active 018011266 Problem Anxiety F41.9 Active 31111803 Problem Severe episode of recurrent major depressive disorder, without psychotic features F33.2 Active 80933766 Problem Palpitations R00.2 Active 62872108 ALLERGIES Unknown Allergies SOCIAL HISTORY No smoking Hx information available PLAN OF CARE VITAL SIGNS MEDICATIONS Unknown Medications RESULTS No Results PROCEDURES No Known procedures IMMUNIZATIONS No Known Immunizations
--- OUTSIDE RECORDS SUMMARY | 2017-11-18 11:02 | XMS REPORT ---
Author Author MAURISIO LIU Organization [facility] Address [address] [place] [address] Care Team Providers Care Manager Order Name Role Phone LIU, MAURISIO Unavailable PROBLEMS Type Condition ICD9-CM Code FMB28-MO Code Onset Dates Condition Status SNOMED Code Problem Major depressive disorder with single episode, remission status unspecified F32.9 Active 81804147 Problem Anxiety F41.9 Active 85928613 Problem Primary insomnia F51.01 Active 5242858 Problem Moderate episode of recurrent major depressive disorder F33.1 Active 521374549 Problem Migraine without aura and with status migrainosus, not intractable G43.001 Active 748703903 Problem Psychophysiological insomnia F51.04 Active 910905183 Problem Palpitations R00.2 Active 67800968 Problem Panic attack F41.0 Active 412171397 Problem Generalized anxiety disorder F41.1 Active 09982583 Problem Severe episode of recurrent major depressive disorder, without psychotic features F33.2 Active 39425430 ALLERGIES Substance Reaction Event Type Date Status Codeine Sulfate itching Drug Allergy Dec, Active SOCIAL HISTORY Never Assessed PLAN OF CARE Activity Details Follow Up 4 Weeks Reason:anxiety VITAL SIGNS Height 63 in 2017-01-11 Weight 280.5 lbs 2017-01-11 Temperature 98.3 degrees Fahrenheit 2017-01-11 Heart Rate 76 bpm 2017-01-11 Respiratory Rate 20 2017-01-11 BMI 49.68 kg/m2 2017-01-11 Blood pressure systolic 124 mmHg 2017-01-11 Blood pressure diastolic 78 mmHg 2017-01-11 MEDICATIONS Medication Instructions Dosage Frequency Start Date End Date Duration Status Belsomra 15 MG Orally Once a day 1 tablet at bedtime as needed 24h Nov, 10 days Active Celexa 40 MG Orally Once a day 1 tablet 24h Active Aripiprazole 10 mg Orally Once a day 1 tablet 24h Active Ambien CR 12.5 MG Orally Once a day 1 tablet at bedtime as needed 24h Dec, Active RESULTS No Results PROCEDURES No Known procedures IMMUNIZATIONS No Known Immunizations MEDICAL (GENERAL) HISTORY Type Description Date Medical History anxiety Medical History panic disorder Medical History Depression Surgical History section 06/2012 Surgical History appendectomy 06/2009 Surgical History carpal tunnel release--both
--- OUTSIDE RECORDS SUMMARY | 2017-11-18 11:02 | XMS REPORT ---
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 Active 253368603 Problem Migraine without aura and with status migrainosus, not intractable G43.001 Active 885016839 Problem Psychophysiological insomnia F51.04 Active 202079073 Problem Palpitations R00.2 Active 52360930 Problem Panic attack F41.0 Active 250733580 Problem Generalized anxiety disorder F41.1 Active 66600003 Problem Severe episode of recurrent major depressive disorder, without psychotic features F33.2 Active 41403294 ALLERGIES No Information SOCIAL HISTORY Never Assessed PLAN OF CARE Activity Details Follow Up 4 Weeks Reason: VITAL SIGNS MEDICATIONS Medication Instructions Dosage Frequency Start Date End Date Duration Status Ambien CR 12.5 MG Orally Once a day 1 tablet at bedtime as needed 24h Dec, 30 days Active Celexa 40 mg Orally Once a day 1 tablet 24h 30 days Active Aripiprazole 5 MG Orally Once a day 1 tablet 24h 30 days Active RESULTS No Results PROCEDURES No Known procedures IMMUNIZATIONS No Known Immunizations MEDICAL (GENERAL) HISTORY Type Description Date Medical History anxiety Medical History panic disorder Medical History Depression Surgical History section 06/2012 Surgical History appendectomy 06/2009 Surgical History carpal tunnel release--both
--- OUTSIDE RECORDS SUMMARY | 2017-11-18 11:02 | XMS REPORT | Continuity of Care Document ---
Author Author [facility] Organization [facility] Address Unknown Phone Unavailable Allergies Active Description Code Type Severity Reaction Onset Reported/Identified Relationship to Patient Clinical Status Yes NKANo Known Allergies NKA Miscellaneous Allergy Unknown N/A 05/03/2006 Yes codeine [id number] Drug Allergy Unknown RASH, ITCHING 10/14/2017 Medications There is no data. Problems Date Dx Coded Attending Type Code Diagnosis Diagnosed By 07/08/2012 Ot 652.51 HIGH HEAD AT TERM-DELIV 07/08/2012 Ot 653.41 FETOPELV DISPROPOR-DELIV 07/08/2012 Ot 656.61 EXCESS GRTH-DELIV 07/08/2012 Ot 660.11 BONY PELV OBSTRUCT-DELIV 07/08/2012 Ot V23.49 PREG W POOR OBSTECTRIC HISTORY 07/08/2012 Ot V27.0 DELIVER- SINGLE LIVEBORN 10/12/2015 Ot 656.63 10/12/2015 Ot V72.63 10/12/2015 Ot V74.8 10/12/2015 Ot 656.63 10/12/2015 Ot V72.63 10/12/2015 Ot V74.8 10/31/2015 NEPTALI FALLON MD Ot F32.9 10/31/2015 NEPTALI FALLON MD Ot F41.0 10/31/2015 NEPTALI FALLON MD Ot G47.00 05/07/2016 Ot 656.63 EXCESS FET GRTH-ANTEPART 05/07/2016 Ot V72.63 PRE- PROCEDURAL LABORATORY EXAMINATION 05/07/2016 Ot V74.8 SCREEN- BACTERIAL DIS NEC 05/07/2016 NEPTALI FALLON MD Ot F32.9 MAJOR DEPRESSIVE DISORDER, SINGLE EPISOD 05/07/2016 NEPTALI FALLON MD Ot F41.0 PANIC DISORDER WITHOUT AGORAPHOBIA 05/07/2016 NEPTALI FALLON MD Ot G47.00 INSOMNIA, UNSPECIFIED 05/26/2016 Ot 656.63 EXCESS FET GRTH-ANTEPART 05/26/2016 Ot V72.63 PRE- PROCEDURAL LABORATORY EXAMINATION 05/26/2016 Ot V74.8 SCREEN- BACTERIAL DIS NEC 05/26/2016 LEEANNE FRIED, NEPTALI Salguero Ot F32.9 MAJOR DEPRESSIVE DISORDER, SINGLE EPISOD 05/26/2016 LEEANNE FRIED, NEPTALI G Ot F41.0 PANIC DISORDER WITHOUT AGORAPHOBIA 05/26/2016 LEEANNE FRIED NPETALI Salguero Ot G47.00 INSOMNIA, UNSPECIFIED 05/28/2016 Ot 656.63 EXCESS FET GRTH-ANTEPART 05/28/2016 Ot V72.63 PRE- PROCEDURAL LABORATORY EXAMINATION 05/28/2016 Ot V74.8 SCREEN- BACTERIAL DIS NEC 05/28/2016 NEPTALI FALLON MD Ot F32.9 MAJOR DEPRESSIVE DISORDER, SINGLE EPISOD 05/28/2016 LEEANNE FRIED, NEPTALI G Ot F41.0 PANIC DISORDER WITHOUT AGORAPHOBIA 05/28/2016 LEEANNE FRIEDNASIRNEPTALI G Ot G47.00 INSOMNIA, UNSPECIFIED 11/04/2016 Ot 656.63 EXCESS FET GRTH-ANTEPART 11/04/2016 Ot V72.63 PRE- PROCEDURAL LABORATORY EXAMINATION 11/04/2016 Ot V74.8 SCREEN- BACTERIAL DIS NEC 11/04/2016 NEPTALI FALLON MD Ot F32.9 MAJOR DEPRESSIVE DISORDER, SINGLE EPISOD 11/04/2016 LEEANNE FRIEDNASIRNEPTALI G Ot F41.0 PANIC DISORDER WITHOUT AGORAPHOBIA 11/04/2016 NEPTALI FALLON MD Ot G47.00 INSOMNIA, UNSPECIFIED 11/04/2016 CHELO FRIED, DONTE Guardado Ot F41.9 ANXIETY DISORDER, UNSPECIFIED 11/04/2016 CHELO FRIED, DONTE Guardado Ot G47.00 INSOMNIA, UNSPECIFIED 11/04/2016 CHELO FRIED, DONTE Guardado Ot N39.0 URINARY TRACT INFECTION, SITE NOT SPECIF 11/04/2016 CHELO FRIED, DONTE Guardado Ot R19.7 DIARRHEA, UNSPECIFIED 11/10/2016 CHELO FRIED, DONTE Guardado Ot F41.9 ANXIETY DISORDER, UNSPECIFIED 11/10/2016 CHELO FRIED, DONTE Guardado Ot G47.00 INSOMNIA, UNSPECIFIED 11/10/2016 CHELO FRIED, DONTE Guardado Ot N39.0 URINARY TRACT INFECTION, SITE NOT SPECIF 11/10/2016 CHELO FRIED, DONTE Geo Ot R19.7 DIARRHEA, UNSPECIFIED 12/11/2016 MAURISIO LIU CONTINUOUS MINING MACHINE LODE MINER Ot R00.2 PALPITATIONS 12/23/2016 MAURISIO LIU CONTINUOUS MINING MACHINE LODE MINER Ot R00.2 PALPITATIONS 02/25/2017 Ot 656.63 EXCESS FET GRTH-ANTEPART 02/25/2017 Ot V72.63 PRE- PROCEDURAL LABORATORY EXAMINATION 02/25/2017 Ot V74.8 SCREEN- BACTERIAL DIS NEC 02/25/2017 LEEANNE FRIED, NEPTALI Salguero Ot F32.9 MAJOR DEPRESSIVE DISORDER, SINGLE EPISOD 02/25/2017 LEEANNE FRIED, NEPTALI Salguero Ot F41.0 PANIC DISORDER WITHOUT AGORAPHOBIA 02/25/2017 LEEANNE FRIED, NEPTALI Salguero Ot G47.00 INSOMNIA, UNSPECIFIED 10/28/2017 MIGUEL LOGAN MD Ot K21.9 GASTRO-ESOPHAGEAL REFLUX DISEASE WITHOUT 11/12/2017 MIGUEL LOGAN MD Ot E66.01 MORBID (SEVERE) OBESITY DUE TO EXCESS CA 11/12/2017 MIGUEL LOGAN MD Ot Z01.812 ENCOUNTER FOR PREPROCEDURAL LABORATORY E 11/12/2017 MIGUEL LOGAN MD Ot Z11.2 ENCOUNTER FOR SCREENING FOR OTHER BACTER Procedures Code Description Performed By Performed On 73.4 MEDICAL INDUCTION LABOR 02/03/2010 73.59 MANUAL ASSIST DELIV NEC 02/03/2010 74.1 LOW CERVICAL 07/05/2012 Results Test Result Range Complete urinalysis with reflex to culture - 11/04/16 12:48 Urine color determination YELLOW NRG Urine clarity determination CLEAR NRG Urine pH measurement by test strip 5 5-9 Specific gravity of urine by test strip 1.025 1.016- 1.022 Urine protein assay by test strip, semi-quantitative 2+ NEGATIVE Urine glucose detection by automated test strip NEGATIVE NEGATIVE Erythrocytes detection in urine sediment by light microscopy 1+ NEGATIVE Urine ketones detection by automated test strip 2+ NEGATIVE Urine nitrite detection by test strip NEGATIVE NEGATIVE Urine total bilirubin detection by test strip NEGATIVE NEGATIVE Urine urobilinogen measurement by automated test strip (mass/volume) NORMAL NORMAL Urine leukocyte esterase detection by dipstick 3+ NEGATIVE Automated urine sediment erythrocyte count by microscopy (number/high power field) RARE NRG Automated urine sediment leukocyte count by microscopy (number/high power field ) [HPF] NRG Bacteria detection in urine sediment by light microscopy TRACE NRG Squamous epithelial cells detection in urine sediment by light microscopy 2-5 NRG Crystals detection in urine sediment by light microscopy NONE NRG Casts detection in urine sediment by light microscopy NONE NRG Mucus detection in urine sediment by light microscopy SMALL NRG Complete urinalysis with reflex to culture YES NRG Urine drug screening test - 11/04/16 12:48 Urine phencyclidine detection by screening method NEGATIVE NEGATIVE Urine benzodiazepines detection by screening method POSITIVE NEGATIVE Urine cocaine detection NEGATIVE NEGATIVE Urine amphetamines detection by screening method NEGATIVE NEGATIVE Urine methamphetamine detection by screening method NEGATIVE NEGATIVE Urine cannabinoids detection by screening method NEGATIVE NEGATIVE Urine opiates detection by screening method NEGATIVE NEGATIVE Urine barbiturates detection NEGATIVE NEGATIVE Screening urine tricyclic antidepressants detection NEGATIVE NEGATIVE Urine methadone detection by screening method NEGATIVE NEGATIVE Urine oxycodone detection NEGATIVE NEGATIVE Urine propoxyphene detection NEGATIVE NEGATIVE Bacterial urine culture - 11/04/16 12:48 URINE CULTURE RESULTS <10,000/ML NRG Complete blood count (CBC) with automated white blood cell (WBC) differential - 11/04/16 13:08 Blood leukocytes automated count (number/volume) 9.2 10*3/uL 4.3-11.0 Blood erythrocytes automated count (number/volume) 5.03 10*6/uL 4.35-5.85 Venous blood hemoglobin measurement (mass/volume) 14.6 g/dL 11.5-16.0 Blood hematocrit (volume fraction) 42 % 35-52 Automated erythrocyte mean corpuscular volume 84 [foz_us] 80-99 Automated erythrocyte mean corpuscular hemoglobin (mass per erythrocyte) 29 pg 25-34 Automated erythrocyte mean corpuscular hemoglobin concentration measurement ( mass/volume) 34 g/dL 32-36 Automated erythrocyte distribution width ratio 14.2 % 10.0-14.5 Automated blood platelet count (count/volume) 300 10*3/uL 130-400 Automated blood platelet mean volume measurement 10.6 [foz_us] 7.4-10.4 Automated blood neutrophils/100 leukocytes 72 % 42-75 Automated blood lymphocytes/100 leukocytes 19 % 12-44 Blood monocytes/100 leukocytes 9 % 0-12 Automated blood eosinophils/100 leukocytes 0 % 0-10 Automated blood basophils/100 leukocytes 0 % 0-10 Blood neutrophils automated count (number/volume) 6.6 10*3 1.8-7.8 Blood lymphocytes automated count (number/volume) 1.7 10*3 1.0-4.0 Blood monocytes automated count (number/volume) 0.8 10*3 0.0-1.0 Automated eosinophil count 0.0 10*3/uL 0.0-0.3 Automated blood basophil count (count/volume) 0.0 10*3/uL 0.0-0.1 Serum or plasma choriogonadotropin ( test) detection - 11/04/16 13:08 Serum or plasma choriogonadotropin ( test) detection NEGATIVE NEGATIVE Comprehensive metabolic panel - 11/04/16 13:08 Serum or plasma sodium measurement (moles/volume) 138 mmol/L 135-145 Serum or plasma potassium measurement (moles/volume) 4.1 mmol/L 3.6-5.0 Serum or plasma chloride measurement (moles/volume) 110 mmol/L 98-107 Carbon dioxide 17 mmol/L 21-32 Serum or plasma anion gap determination (moles/volume) 11 mmol/L 5-14 Serum or plasma urea nitrogen measurement (mass/volume) 10 mg/dL 7-18 Serum or plasma creatinine measurement (mass/volume) 0.79 mg/dL 0.60-1.30 Serum or plasma urea nitrogen/creatinine mass ratio 13 NRG Serum or plasma creatinine measurement with calculation of estimated glomerular filtration rate > NRG Serum or plasma glucose measurement (mass/volume) 96 mg/dL 70-105 Serum or plasma calcium measurement (mass/volume) 9.1 mg/dL 8.5-10.1 Serum or plasma total bilirubin measurement (mass/volume) 0.5 mg/dL 0.1-1.0 Serum or plasma alkaline phosphatase measurement (enzymatic activity/volume) 98 U/L 40-136 Serum or plasma aspartate aminotransferase measurement (enzymatic activity/ volume) 21 U/L 5-34 Serum or plasma alanine aminotransferase measurement (enzymatic activity/volume ) 16 U/L 0-55 Serum or plasma protein measurement (mass/volume) 7.5 g/dL 6.4-8.2 Serum or plasma albumin measurement (mass/volume) 4.4 g/dL 3.2-4.5 Serum or plasma troponin i.cardiac measurement (mass/volume) - 11/04/16 13:08 Serum or plasma troponin i.cardiac measurement (mass/volume) < ng/ mL <0.30 THYROID STIMULATING HORMONE - 11/04/16 13:08 THYROID STIMULATING HORMONE 1.74 u[iU]/mL 0.35-4.94 Complete blood count (CBC) with automated white blood cell (WBC) differential - 11/11/17 12:14 Blood leukocytes automated count (number/volume) 8.0 10*3/uL 4.3-11.0 Blood erythrocytes automated count (number/volume) 4.74 10*6/uL 4.35-5.85 Venous blood hemoglobin measurement (mass/volume) 14.8 g/dL 11.5-16.0 Blood hematocrit (volume fraction) 42 % 35-52 Automated erythrocyte mean corpuscular volume 88 [foz_us] 80-99 Automated erythrocyte mean corpuscular hemoglobin (mass per erythrocyte) 31 pg 25-34 Automated erythrocyte mean corpuscular hemoglobin concentration measurement ( mass/volume) 36 g/dL 32-36 Automated erythrocyte distribution width ratio 12.3 % 10.0-14.5 Automated blood platelet count (count/volume) 330 10*3/uL 130-400 Automated blood platelet mean volume measurement 9.8 [foz_us] 7.4-10.4 Automated blood neutrophils/100 leukocytes 68 % 42-75 Automated blood lymphocytes/100 leukocytes 24 % 12-44 Blood monocytes/100 leukocytes 7 % 0-12 Automated blood eosinophils/100 leukocytes 1 % 0-10 Automated blood basophils/100 leukocytes 0 % 0-10 Blood neutrophils automated count (number/volume) 5.4 10*3 1.8-7.8 Blood lymphocytes automated count (number/volume) 1.9 10*3 1.0-4.0 Blood monocytes automated count (number/volume) 0.6 10*3 0.0-1.0 Automated eosinophil count 0.0 10*3/uL 0.0-0.3 Automated blood basophil count (count/volume) 0.0 10*3/uL 0.0-0.1 Methicillin resistant Staphylococcus aureus (MRSA) screening culture - 12:16 Methicillin resistant Staphylococcus aureus (MRSA) screening culture NEG NRG Encounters ACCT No. Visit Date/Time Discharge Status Pt. Type Provider Facility Loc./Unit Complaint [id number] 12/25/2012 20:24:00 12/25/2012 22:04:00 DIS Emergency Liset FRIED, Kd Patino [facility] W.EDN [id number] 10/01/2014 09:50:23 10/01/2014 23:59:59 CLS Outpatient Lisa Paniagua [id number] 02/02/2014 09:14:28 02/02/2014 23:59:59 CLS Outpatient Ibis Mayorga [id number] 11/11/2017 11:49:00 11/11/2017 12:25:00 DIS Outpatient MIGUEL LOGAN MD [facility] PREOP MORBID OBESITY [id number] 10/14/2017 08:44:00 10/14/2017 23:59:59 CLS Outpatient MIGUEL LOGAN MD [facility] RAD REFLUX [id number] 12/10/2016 10:01:00 12/10/2016 23:59:59 CLS Outpatient MAURISIO LIU [facility] CARD PALPITATIONS [id number] 11/04/2016 11:53:00 11/04/2016 14:39:00 DIS Emergency CHELO FRIED, DONTE Guardado [facility] ER SHAKEY DIARRHEA [id number] 10/12/2015 08:23:00 10/12/2015 23:59:59 CLS Outpatient NEPTALI FALLON MD [facility] LAB DEPRESSIVE DISORDER, INSOMNIA,PANIC DISORDER [id number] 11/18/2017 10:30:00 ACT Preadmit MIGUEL LOGAN MD [facility] SDC MORBID OBESITY [id number] 01/28/2016 20:30:00 Document Registration [id number] 07/05/2012 05:42:00 Document Registration [id number] 07/04/2012 13:06:00 Document Registration
--- OUTSIDE RECORDS SUMMARY | 2017-11-18 11:02 | XMS REPORT ---
Author Author MAURISIO LIU [facility] eClinicalWorks Address Unknown Phone Unavailable Care Team Providers Care Build And Deployment Engineer Name Role Phone MAURISIO LIU CP Unavailable Allergies, Adverse Reactions, Alerts Substance Reaction Event Type Codeine Sulfate itching Drug Allergy Problems Problem Type Condition Code Onset Dates Condition Status Assessment Palpitations R00.2 Active Problem Anxiety F41.9 Active Problem Major depressive disorder with single episode, remission status unspecified F32.9 Active Problem Severe episode of recurrent major depressive disorder, with psychotic features F33.3 Active Assessment Major depressive disorder with single episode, remission status unspecified F32.9 Active Assessment Primary insomnia F51.01 Active Problem Primary insomnia F51.01 Active Assessment Anxiety F41.9 Active Medications Medication Code System Code Instructions Start Date End Date Status Dosage Celexa [facility] [place] 2] [address]-69 20 mg Orally Once a day Aug 24, 2016 1 tablet Restoril [facility] [place]NOTE 2] [address]-12 30 MG Orally Once a day Sep 23, 2016 1 capsule at bedtime as needed Remeron [facility] [place]NOTE 2] [address]-60 45 MG Orally one hour before bed Aug 24, 2016 1 tablet before bedtime in the evening Procedures Procedure Coding System Code Date COMPREHEN METABOLIC PANEL CPT-4 81752 Sep 23, 2016 LIPID PANEL CPT-4 92446 Sep 23, 2016 COMPLETE CBC W/AUTO DIFF WBC CPT-4 56459 Sep 23, 2016 VENIPUNCT, ROUTINE* CPT-4 00358 Sep 23, 2016 Office Visit, Est Pt., Level 4 CPT-4 99651 Sep 23, 2016 Vital Signs Date/Time: Sep 23, 2016 Cardiac Monitoring Heart Rate 88 bpm Weight 300.5 lbs Height 63 in BMI 53.23 Index Blood Pressure Diastolic 80 mmHg Blood Pressure Systolic 138 mmHg Results Name Result Date Reference Range Unit Abnormality Flag LIPID PANEL ----HDL Cholesterol 34 99025609 >39 mg/dL L ----VLDL Cholesterol Damien 39 92211088 5-40 mg/dL ----LDL Cholesterol Calc 78 03676694 0-99 mg/dL ----Cholesterol, Total 151 55183922 100-199 mg/dL ----Triglycerides 195 68986128 0-149 mg/dL H CMP ----Globulin, Total 2.8 79948502 1.5-4.5 g/dL ----eGFR If Africn Am 131 86421788 >59 mL/min/1.73 ----eGFR If NonAfricn Am 114 83611363 >59 mL/min/1.73 ----Albumin, Serum 4.1 77127542 3.5-5.5 g/dL ----Sodium, Serum 142 71991851 136-144 mmol/L ----Protein, Total, Serum 6.9 93561041 6.0-8.5 g/dL ----BUN/Creatinine Ratio 11 64782415 8-20 ----Calcium, Serum 9.0 22250472 8.7-10.2 mg/dL ----AST (SGOT) 18 41964085 0-40 IU/L ----Glucose, Serum 80 76262239 65-99 mg/dL ----Alkaline Phosphatase, S 109 97083270 39-117 IU/L ----Bilirubin, Total 0.3 66830467 0.0-1.2 mg/dL ----Creatinine, Serum 0.71 36615902 0.57-1.00 mg/dL ----A/G Ratio 1.5 67338341 1.1-2.5 ----BUN 8 11459097 6-20 mg/dL ----Carbon Dioxide, Total 25 92832217 18-29 mmol/L ----ALT (SGPT) 18 48700469 0-32 IU/L ----Potassium, Serum 4.6 10788626 3.5-5.2 mmol/L ----Chloride, Serum 104 61644276 97-106 mmol/L ROUTINE VENIPUNCTURE CBC ----MCHC 32.7 43008794 31.5-35.7 g/dL ----MCH 27.9 88555836 26.6-33.0 pg ----Platelets 398 59200441 150-379 x10E3/uL H ----RDW 14.4 60868874 12.3-15.4 % ----Immature Granulocytes 0 44505246 % ----Immature Grans (Abs) 0.0 13553554 0.0-0.1 x10E3/uL ----Lymphs 33 82930295 % ----Monocytes 8 64174780 % ----Neutrophils 57 60506080 % ----Neutrophils (Absolute) 3.3 72300320 1.4-7.0 x10E3/uL ----Hematocrit 40.1 58909034 34.0-46.6 % ----Lymphs (Absolute) 1.9 40492897 0.7-3.1 x10E3/uL ----MCV 85 36818929 79-97 fL ----RBC 4.70 59730401 3.77-5.28 x10E6/uL ----Eos 2 18735957 % ----Basos 0 72920930 % ----Hemoglobin 13.1 07303112 11.1-15.9 g/dL ----Baso (Absolute) 0.0 94737147 0.0-0.2 x10E3/uL ----WBC 5.8 49225031 3.4-10.8 x10E3/uL ----Monocytes(Absolute) 0.5 57166386 0.1-0.9 x10E3/uL ----Eos (Absolute) 0.1 17373882 0.0-0.4 x10E3/uL Summary Purpose eClinicalWorks Submission
--- OUTSIDE RECORDS SUMMARY | 2017-11-18 11:02 | XMS REPORT ---
Author Author MAURISIO LIU [facility] Address [address] [place] [address] Care Team Providers Care Press Officer Name Role Phone MAURISIO LIU Unavailable PROBLEMS Type Condition ICD9-CM Code [id number] Code Onset Dates Condition Status SNOMED Code Problem Moderate episode of recurrent major depressive disorder F33.1 Active [id number] Problem Panic attack F41.0 Active 413812411 Problem Palpitations R00.2 Active 77143758 Problem Major depressive disorder with single episode, remission status unspecified F32.9 Active 34554213 Problem Primary insomnia F51.01 Active 7311978 Problem Severe episode of recurrent major depressive disorder, with psychotic features F33.3 Active 17216753 Problem Anxiety F41.9 Active 66137354 ALLERGIES Unknown Allergies SOCIAL HISTORY No smoking Hx information available PLAN OF CARE VITAL SIGNS MEDICATIONS Unknown Medications RESULTS No Results PROCEDURES No Known procedures IMMUNIZATIONS No Known Immunizations
[2017-11-18] MEDS: LACTATED RINGERS 1,000 ML IV PRN ×3 (11:05→15:20)
--- NOTE | 2017-11-18 11:10 | Progress Note-Pre Operative ---
Pre-Operative Progress Note H&P Reviewed The H&P was reviewed, patient examined and no changes noted. Date Seen by Provider: Nov 18, 2017 Time Seen by Provider: 11:00 Date H&P Reviewed: Nov 18, 2017 Time H&P Reviewed: 11:00 Pre-Operative Diagnosis: morbid obesity, depression MIGUEL LOGAN MD Nov 18, 2017 11:10 am
[2017-11-18] MEDS ORDERED: ONDANSETRON 4 MG/2 ML (SDV) Z0FRAN ONE ×2 (12:25→15:39)
[2017-11-18] MEDS ORDERED: ROCURONIUM 50 MG/5 ML (ZEMURON) VIAL IV ONE (12:25)
[2017-11-18] MEDS ORDERED: LIDOCAINE PF 2% 5 ML (XYLOCAINE) VIAL ONE (12:25)
[2017-11-18] MEDS ORDERED: proPOfol 200 MG/20 ML (DIPRIVAN) VIAL IV ONE (12:25)
[2017-11-18] MEDS ORDERED: LIDOCAINE JELLY 2% (XYLOCAINE) 5 ML TUBE ONE (12:25)
[2017-11-18] MEDS ORDERED: LACTATED RINGERS 1,000 ML IV ONE ×2 (12:25→15:14)
[2017-11-18] MEDS ORDERED: fentaNYL INJECTION 250 MCG/5 ML AMP ONE (12:25)
[2017-11-18] MEDS ORDERED: MIDAZOLAM 2 MG/2 ML (VERSED) VIAL ONE (12:25)
[2017-11-18] MEDS ORDERED: BUP/EPI 0.5% 1:200,000 (MARCAINE) 10ML VIAL IJ ONE (12:43)
[2017-11-18] MEDS ORDERED: SEVOFLURANE (ULTANE) 15 ML INHAL SOLN ONE ×2 (15:14→15:20)
[2017-11-18] MEDS ORDERED: GLYCOPYRROLATE 0.2 MG/ML (ROBINUL) 2 ML VIAL ONE (15:16)
[2017-11-18] MEDS ORDERED: NEOSTIGMINE (BLOXIVERZ ) 1 MG/1ML 10 ML VIAL ONE (15:16)
[2017-11-18] MEDS ORDERED: NS IV 1000 ML 1,000 ML IV SCH (15:35)
--- NOTE | 2017-11-18 15:35 | Progress Note-Post Operative ---
Post-Operative Progess Note Surgeon (s)/Anthropology Department Chair (s) Surgeon MIGUEL LOGAN MD Anthropology Department Chair: river wilson MARRIAGE COUNSELOR MINISTER Pre-Operative Diagnosis morbid obesity, depression Post-Operative Diagnosis same Procedure & Operative Findings Date of Procedure 11/18/17 Procedure Performed/Findings laparoscopic gastric sleeve resection. Anesthesia Type GET Estimated Blood Loss Estimated blood loss (mL): minimal Specimens/Packing Specimens Removed stomach MIGUEL LOGAN MD Nov 18, 2017 3:35 pm
[2017-11-18] MEDS ORDERED: morphine INJ 10 MG/ML 1ML (SYR OR VIAL) ONE (15:38)
[2017-11-18] MEDS: morphine INJ 10 MG/ML 1ML (SYR OR VIAL) IVP PRN ×2 (15:41→15:48)
[2017-11-18] MEDS ORDERED: fentaNYL INJECTION 100 MCG/2 ML AMP IVP PRN (15:45)
[2017-11-18] MEDS ORDERED: METOCLOPRAMIDE INJ 10 MG/2 ML (REGLAN) IV PRN (15:45)
[2017-11-18] MEDS ORDERED: PROMETHAZINE INJ 25 MG/ML (PHENERGAN) AMP IVP PRN (15:45)
[2017-11-18] MEDS ORDERED: diphenhydrAMINE 50 MG/ML INJ (BENADRYL) IVP PRN (15:45)
[2017-11-18] MEDS ORDERED: ONDANSETRON 4 MG/2 ML (SDV) Z0FRAN IVP PRN (15:45)
[2017-11-18] MEDS ORDERED: diphenhydrAMINE 50 MG/ML INJ (BENADRYL) IV PRN (15:45)
[2017-11-18] MEDS ORDERED: NALOXONE 0.4 MG/ML 1 ML (NARCAN) VIAL IV PRN (15:45)
[2017-11-18] MEDS ORDERED: HYDROmorphone (DILAUDID) 2 MG/ML VIAL IVP PRN (15:45)
[2017-11-18] MEDS ORDERED: MEPERIDINE (DEMEROL) INJ 50 MG/ML IVP PRN (15:45)
[2017-11-18] MEDS ORDERED: fentaNYL INJECTION 1,000 MCG in NS (IVPB) 80 ML IV SCH (15:45)
[2017-11-18] MEDS ORDERED: ONDANSETRON 4 MG/2 ML (SDV) Z0FRAN IV PRN (15:45)
[2017-11-18 17:00] VITALS: BP 132/67
[2017-11-18] MEDS ORDERED: fentaNYL INJECTION 100 MCG/2 ML AMP ONE (17:01)
[2017-11-18] MEDS: 1/2 NS W/KCL 20 MEQ/L 1,000 ML IV SCH ×2 (17:06→23:46)
[2017-11-18] MEDS: METOCLOPRAMIDE INJ 10 MG/2 ML (REGLAN) IVP SCH ×2 (18:01→23:46)
[2017-11-18] MEDS: PANTOPRAZOLE 40 MG/10 ML (PROTONIX) VIAL IV SCH (18:01)
[2017-11-18] MEDS: ONDANSETRON 4 MG/2 ML (SDV) Z0FRAN IVP SCH ×2 (18:01→23:46)
[2017-11-18] MEDS: metroNIDAZOLE 500MG/100ML IVPB 100 ML IV SCH ×2 (18:03→23:46)
[2017-11-18] MEDS: RT-ALBUTEROL SULF 2.5 MG/3 ML PRE-MIX VIAL INH SCH ×2 (18:27→23:15)
[2017-11-18 20:00] VITALS: BP 132/77
[2017-11-18] MEDS: ENOXAPARIN 40 MG/0.4 ML (LOVENOX) SYR SC SCH (20:30)
[2017-11-18] MEDS: ceFAZolin 2 GM/50 ML NS 50 ML IV SCH (20:30)
[2017-11-19 00:22] VITALS: BP 122/80
--- NOTE | 2017-11-19 01:33 | OPERATIVE REPORT ---
DATE OF SERVICE: 11/18/2017 ATTENDING TRAFFIC ENGINEER: RENETTA Tanner. PREOPERATIVE DIAGNOSES: Morbid obesity, anxiety, and depression. POSTOPERATIVE DIAGNOSES: Morbid obesity, anxiety, and depression. PROCEDURE PERFORMED: Laparoscopic gastric sleeve resection. SURGEON: Miguel Logan MD. ANESTHESIA: General endotracheal. ESTIMATED BLOOD LOSS: Minimal. FINDINGS: Mild hepatomegaly, normal-appearing liver and stomach. DISPOSITION: The patient tolerated the procedure well. INDICATIONS FOR THE PROCEDURE: The patient is a 32-year-old female with morbid obesity, who is in our surgical weight loss program for the gastric sleeve resection and meets the medical criteria for bariatric surgery. She began to gain the majority of her adult weight after the of her first child in 2006 and reports through this , she has gained weight. During her last in 2011, she gained the majority of her weight. She has tried multiple diet and exercise attempts in the past with no success. She has tried diet programs including weight watchers, high-protein diet, Atkins, and Slim-Fast with mild success; however, she would regain the weight back. She has also tried exercise regimens including treadmill, weight training as well as Joanne classes and again would lose some weight; however, would regain the weight back. She has tried medications including beta-hCG as well as Topamax, which she felt for ineffective. Her medical comorbidities related to her obesity include anxiety, depression. DESCRIPTION OF PROCEDURE: The patient was brought to the operating room, laid supine on the table. After adequate IV pain and sedating medications and general endotracheal intubation, the abdomen was prepped and draped in standard surgical fashion. A 0.5% Marcaine with epinephrine was used to anesthetize the overlying skin in the left upper abdominal quadrant and a transverse skin incision was made using a 15-blade. An #0 silk suture was applied to the medial aspect of the incision for retraction and a Veress needle was inserted with a low opening pressure of 0 mmHg pressure. The Veress needle removed and a 5 mm Xcel trocar placed followed by a 5 mm 45 degree angle laparoscope visualizing the peritoneal cavity. A 4-quadrant abdominal exploration was performed. There was mild hepatomegaly. It was visualized that the gallbladder, stomach, small bowel and colon appeared normal. No hiatal hernia was identified. Under direct visualization, we then proceeded to place a midabdominal left of midline 10 mm port after the skin and peritoneal lining were anesthetized using 0.5% Marcaine with epinephrine and a transverse skin incision made using 15-blade. In a similar manner, a midabdominal right of midline 15 mm port was placed followed by a right upper abdominal quadrant 5 mm port. The epigastric region was then anesthetized and a small transverse skin incision made using 11-blade created. A tract was then created through the abdominal wall layers using a trocar to a 5 mm port and a medium-sized Nathansen liver retractor was placed and the left lobe of the liver retracted anteriorly and superiorly. The patient was then placed in steep reverse Trendelenburg position. We then measured 6 cm from the pylorus and marked this with a marking pen along the greater curvature. The gastrohepatic ligament next to the stomach was then opened entering the lesser sac using a Sonicision. We then proceeded with inferior dissection using the Sonicision until we were approximately 2 cm below our marking. We then proceeded cephalad taking down all of the short gastric vessels with a good hemostasis. The entire angle of His connective tissue fibers were taken down as well as the posterior stomach behind this area. Good hemostasis was observed. A 42-Angolan bougie was then placed under direct visualization and guided into the pylorus. We then proceeded with a gastric sleeve resection using the bougie as a guide. We first proceeded with a ED polyglycolic acid black load of 45 mm, approximately 2 cm below our marking. We then proceeded with a 60 mm black load followed by two 60 mm purple loads completing our gastric sleeve resection. Good hemostasis was observed. The staple line corners were then clipped with 5 mm clips. Tisseel fibrin glue was then placed onto the staple line and the omentum placed back over the staple line. The liver retractor was removed and the bougie removed as well. The stomach was then removed through the 15 mm port site. The fascia and peritoneum to the 15 and 10 mm port sites were then closed under direct visualization using Jose-Selina device and #0 Vicryl suture. Abdomen was desufflated and remaining ports removed. All skin incisions were closed using 4-0 Monocryl running subcuticular sutures. Wounds were then cleaned and covered with Dermabond. The patient tolerated the procedure well. We will start IV normal pain medication. We will admit her to the floor and start with DVT prophylaxis with early ambulation, calf SCDs as well as Lovenox injections. We will also proceed to start with a [employer] pump for pain control. She may have ice chips tonight; however, we will start a phase I clear liquid diet in the morning. Once she is tolerating at least 60 mL of fluid for half hour, is ambulating well and has good pain control with oral pain medication, we will then discharge her home. Job ID: [id number] DocumentID: [id number] Dictated Date: 11/18/2017 15:54:04 Dealer Compliance Representative Date: 11/19/2017 01:32:21 Dictated By: MIGUEL LOGAN MD MTDD
[2017-11-19] MEDS: RT-ALBUTEROL SULF 2.5 MG/3 ML PRE-MIX VIAL INH SCH ×3 (02:20→11:11)
[2017-11-19 04:00] VITALS: BP 135/79
[2017-11-19] MEDS: ceFAZolin 2 GM/50 ML NS 50 ML IV SCH ×2 (05:50→11:46)
[2017-11-19] MEDS: ONDANSETRON 4 MG/2 ML (SDV) Z0FRAN IVP SCH ×2 (06:12→11:45)
[2017-11-19] MEDS: METOCLOPRAMIDE INJ 10 MG/2 ML (REGLAN) IVP SCH ×2 (06:12→11:45)
[2017-11-19] MEDS: 1/2 NS W/KCL 20 MEQ/L 1,000 ML IV SCH ×2 (06:17→09:24)
[2017-11-19 06:42] LABS: MEAN PLATELET VOLUME 10.1 FL (7.4-10.4); RED BLOOD COUNT 4.62 10^6/uL (4.35-5.85); RED CELL DISTRIBUTION WIDTH 12.9 % (10.0-14.5)
[2017-11-19 07:00] LABS: ANION GAP 15 MMOL/L (5-14); BLOOD UREA NITROGEN < 2 MG/DL (7-18); BUN/CREATININE RATIO 3; CALCIUM 7.7 MG/DL (8.5-10.1); CARBON DIOXIDE 14 MMOL/L (21-32); CHLORIDE 106 MMOL/L (98-107); CREATININE SERUM 0.64 MG/DL (0.60-1.30); GFR ESTIMATED > 60; GLUCOSE 119 MG/DL (70-105); POTASSIUM 3.4 MMOL/L (3.6-5.0); SODIUM 135 MMOL/L (135-145)
[2017-11-19] MEDS: metroNIDAZOLE 500MG/100ML IVPB 100 ML IV SCH (07:04)
[2017-11-19 08:00] VITALS: BP 126/60
[2017-11-19] MEDS ORDERED: SENNA W/DOCUSATE (SENOKOT S) TABLET PO SCH (09:00)
[2017-11-19] MEDS: ENOXAPARIN 40 MG/0.4 ML (LOVENOX) SYR SC SCH (09:25)
[2017-11-19] MEDS: PANTOPRAZOLE 40 MG/10 ML (PROTONIX) VIAL IV SCH (09:25)
[2017-11-19] MEDS ORDERED: ZOLP12.546 PO (09:53)
[2017-11-19] MEDS ORDERED: HYDR-3781 PO (09:53)
[2017-11-19] MEDS ORDERED: ONDA4TAB10 PO (09:53)
[2017-11-19] MEDS ORDERED: PANT40TA3 PO (09:53)
[2017-11-19] MEDS ORDERED: ARIP5TAB20 PO (09:53)
[2017-11-19] MEDS ORDERED: CYAN500T52 SL (09:53)
[2017-11-19] MEDS ORDERED: VITA-252 PO (09:53)
[2017-11-19] MEDS ORDERED: OXYC5SOL19 PO (09:55)
[2017-11-19 12:00] VITALS: BP 116/63
--- NOTE | 2017-11-19 12:34 | Progress Note (SOAP) ---
Subjective Date Seen by Provider: Nov 19, 2017 Time Seen by Provider: 12:30 Subjective/Events-last exam doing well. tolerating clears with nausea controlled. pain controlled. ambulating well. Objective Exam Vital Signs Date Time Temp Pulse Resp B/P (MAP) Pulse Ox O2 Delivery O2 Flow Rate FiO2 11/19/17 11:12 95 Room Air 11/19/17 08:00 97.1 70 20 126/60 (82) 97 Room Air 11/19/17 07:25 98 Room Air 11/19/17 06:00 20 11/19/17 04:00 98.4 75 21 135/79 (97) 97 Room Air 11/19/17 02:20 98 Room Air 11/19/17 00:22 97.7 92 20 122/80 (94) 96 Room Air 11/18/17 23:15 96 Room Air 11/18/17 20:30 97 Room Air 11/18/17 20:00 98.3 83 17 132/77 (95) 97 Room Air 11/18/17 18:27 95 Room Air 11/18/17 17:00 96.9 64 18 132/67 (88) 96 Room Air I & O 11/19/17 07:00 Intake Total 3250 ml Output Total 2750 ml Balance 500 ml Capillary Refill : General Appearance: No Apparent Distress HEENT: PERRL/EOMI Neck: Full Range of Motion Respiratory: Chest Non Tender, Lungs Clear, Normal Breath Sounds Cardiovascular: Regular Rate, Rhythm Gastrointestinal: normal bowel sounds, soft, tenderness Extremity: Normal Capillary Refill Neurologic/Psychiatric: Alert Skin: Normal Color Lymphatic: No Adenopathy Results Lab Laboratory Tests 11/19/17 06:25: White Blood Count 13.0H, Red Blood Count 4.62, Hemoglobin 14.5, Hematocrit 40, Mean Corpuscular Volume 87, Mean Corpuscular Hemoglobin 31, Mean Corpuscular Hemoglobin Concent 36, Red Cell Distribution Width 12.9, Platelet Count 309, Mean Platelet Volume 10.1, Sodium Level 135, Potassium Level 3.4L, Chloride Level 106, Carbon Dioxide Level 14L, Anion Gap 15H, Blood Urea Nitrogen < 2L, Creatinine 0.64, Estimat Glomerular Filtration Rate > 60, BUN/Creatinine Ratio 3 , Glucose Level 119H, Calcium Level 7.7L Assessment/Plan Assessment/Plan Assess & Plan/Chief Complaint s/p laparoscopic gastric sleeve resection. increase PO liquid intake. increase ambulation. home today. Clinical Quality Measures DVT/VTE Risk/Contraindication: Risk Factor Score Per Nursin RFS Level Per Nursing on Admit: 3=High MIGUEL LOGAN MD Nov 19, 2017 12:34 pm
--- NOTE | 2017-11-19 12:35 | Discharge Inst-Surgical ---
D/C Lap Instructions-DOREEN Follow Up Appt in 2 weeks Activity as tolerated No driving for 24 hours No driving while on pain medications Incentive Spirometry use every 2 hours while awake Phase 1 clear liquid diet. Symptoms to Report: Fever over 101 degree F, Nausea/Vomiting Infection Signs and Symptoms to report: Increased redness, Foul odor of wound, Increased drainage Bathing instructions: May shower Operative Area Clean/Dry; Keep incision clean/dry If any problems/questions: Contact your physician or go to Emergency Room MIGUEL LOGAN MD Nov 19, 2017 12:35 pm
[2017-11-19] MEDS ORDERED: METOCLOPRAMIDE INJ 10 MG/2 ML (REGLAN) IVP PRN (15:45)
[2017-11-19] MEDS ORDERED: ONDANSETRON 4 MG/2 ML (SDV) Z0FRAN IVP PRN (15:45)
== END 2017-11-19 13:44 | disposition home or self-care (01) | DRG 621 ==
LOC: SURGICAL 10:23 → SURG 10:24 → EDSTATUS 10:30 → 4TH 16:30
PROVIDERS: ADMIT Surgery; ATTEND Surgery
PROC: 0DB64Z3 Excision of Stomach, Percutaneous Endoscopic Approach, Vertical (ICD-10-PCS; principal; 2017-11-18 11:40)
DX: E66.01 Morbid (severe) obesity due to excess calories (principal); Z68.43 Body mass index [BMI] 50.0-59.9, adult; F32.9 Major depressive disorder, single episode, unspecified; F41.9 Anxiety disorder, unspecified
CPT/HCPCS: 36415; 80048; 84703; 85027; 94640; 94664; 94760

== ENCOUNTER → 2021-09-07 | Outpatient (CLI) | payer BC ==
[~2021-09-07] MED LIST changes: +ARIP5TAB57 PO; +CYAN500T52 SL; +HYDR-3781 PO; +NF-ZOL12.5 PO; +ONDA-105 PO; +OXYC5SOL19 PO; +PANT40TA52 PO; +VITA-252 PO
== END ==
LOC: LAB 11:33
PROVIDERS: ATTEND Family Medicine
DX: Z01.82 Encounter for allergy testing (principal)
CPT/HCPCS: 36415; 83520

== ENCOUNTER → 2022-07-03 | Outpatient (CLI) | payer BC ==
--- NOTE | 2022-07-03 13:37 | Diagnostic Imaging Report ---
INDICATION: Palpable lump posterior right neck. Sonographic interrogation of the area of palpable abnormality was performed. There is an area of hypoechogenicity at the area of palpable abnormality however this could represent muscular tissue. No discrete cyst or fluid collection is seen. No other abnormalities are identified. IMPRESSION: Indeterminate region of hypoechogenicity at the area of palpable abnormality, right neck. This could represent normal anatomy such as muscular tissue. Further evaluation with a dedicated CT soft tissue neck study with contrast would be recommended for much better characterization. Dictated by: Dictated on workstation # [id number]
== END ==
LOC: RAD 11:39
PROVIDERS: ATTEND Family Medicine
DX: R22.1 Localized swelling, mass and lump, neck (principal)
CPT/HCPCS: 76536

== ENCOUNTER → 2022-07-10 | Outpatient (CLI) | payer BC ==
[~2022-07-10] MED LIST changes: +CATHETER FLUSH 10 ML SYR IV PRN; +HOLD METFORMIN - RECEIVED CONTRAST 20 ML VIAL IV SCH; +IOHEXOL 350 MG/ML 100 ML (OMNIPAQUE 350) VIAL IV ONE; +NS 100 ML (IVPB) BAG IV ONE
[2022-07-10 08:09] LABS: ALBUMIN 3.7 GM/DL (3.2-4.5); BILIRUBIN,TOTAL 0.5 MG/DL (0.1-1.0); CALCIUM 8.5 MG/DL (8.5-10.1); CREATININE SERUM 0.77 MG/DL (0.60-1.30); POTASSIUM 4.1 MMOL/L (3.6-5.0); TOTAL PROTEIN 6.3 GM/DL (6.4-8.2)
--- NOTE | 2022-07-10 08:44 | Diagnostic Imaging Report ---
PROCEDURE: CT neck soft tissue with contrast. TECHNIQUE: Multiple contiguous axial images were obtained through the neck after the administration of contrast. Auto Exposure Controls were utilized during the CT exam to meet ALARA standards for radiation dose reduction. INDICATION: Palpable lump in the right posterior neck. No prior studies are available for comparison. A BB marker is placed at the area of palpable abnormality at the posterior right neck. No underlying abnormality is seen. No discrete mass or fluid collection is identified. Posterior nasopharynx and oropharynx are unremarkable. Parapharyngeal fat planes are preserved. Larynx is unremarkable. No thyroid masses are seen. The submandibular and parotid glands appear to be symmetric bilaterally. There appear to be normal sized jugulodigastric lymph nodes bilaterally. No definite pathologically enlarged lymph nodes are seen. IMPRESSION: Unremarkable CT soft tissue neck with contrast. Dictated by: Dictated on workstation # [id number]
== END ==
LOC: RAD 07:45
PROVIDERS: ATTEND Family Medicine
DX: R22.1 Localized swelling, mass and lump, neck (principal)
CPT/HCPCS: 36415; 70491; 80053